=== PATIENT | female | born 1990 | race Caucasian/White ===

== ENCOUNTER 2018-03-27 07:46 | Observation (INO) | payer OTHER ==
[~2018-03-27] VITALS: Ht 160 cm; Wt 80.7 kg
[2018-03-27 08:09] VITALS: BP 109/67
[2018-03-27] MEDS ORDERED: PREN1TAB80 PO (08:10)
== END 2018-03-27 09:40 | disposition home or self-care (01) ==
LOC: 4S 07:46
PROVIDERS: ADMIT Obstetrics & Gynecology; ATTEND Obstetrics & Gynecology
DX: Z34.03 Encounter for supervision of normal first pregnancy, third trimester (principal); Z3A.29 29 weeks gestation of pregnancy
CPT/HCPCS: 59025; G0378

== ENCOUNTER 2018-03-27 20:04 | Inpatient (IN) | payer OTHER ==
[~2018-03-27] VITALS: Ht 160 cm; Wt 78.5 kg
[~2018-03-27 20:04] MED LIST: PREN1TAB80 PO
[2018-03-27] MEDS ORDERED: RINGERS SOLUTION,LACTATED 1,000 ML IV PRN (21:24)
[2018-03-27] MEDS ORDERED: OXYTOCIN 30 UNITS/LACT RINGERS 500 ML IV ONE (21:24)
[2018-03-27] MEDS ORDERED: FentaNYL CITRATE-PF 100 MCG/2 ML VIAL IVP PRN (21:30)
[2018-03-27] MEDS ORDERED: CITRIC ACID/SODIUM CITRATE 30 ML SOLUTION UDCUP PO PRN (21:30)
[2018-03-27] MEDS ORDERED: METOCLOPRAMIDE HCL 5 MG/ML 2 ML VIAL IVP PRN (21:30)
[2018-03-27 21:32] VITALS: BP 113/67
[2018-03-27 21:58] LABS: BASOPHILS % (AUTO) 0.3 % (0.0-2.0); EOSINOPHILS % (AUTO) 1.2 % (1.0-6.0); HEMATOCRIT 36.3 % (36-46); LYMPHOCYTES # (AUTO) 2.5 K/uL (1.0-4.8); LYMPHOCYTES % (AUTO) 28.6 % (22.0-44.0); MEAN CORPUSCULAR HEMOGLOBIN 31.1 pg (26.0-34.0); MEAN CORPUSCULAR HGB CONC 35.7 G/dL (31.0-37.0); MEAN CORPUSCULAR VOLUME 87 fL (80-100); MONOCYTES % (AUTO) 11.6 % (2.0-9.0); NEUTROPHILS # (AUTO) 5.1 K/uL (1.8-7.7); NEUTROPHILS % (AUTO) 58.3 % (40.0-70.0); PLATELET COUNT (AUTO)-OB 169 K/uL (150-450); RED BLOOD CELL COUNT(AUTO) 4.17 MIL/uL (4.00-5.20); RED CELL DISTRIBUTION WIDTH 13.6 % (11.5-14.5)
[2018-03-27] MEDS ORDERED: DINOPROSTONE 10 MG VAGINAL SUPPOSITORY VG ONE (22:00)
[2018-03-27] MEDS: RINGERS SOLUTION,LACTATED 1,000 ML IV SCH (22:14)
[2018-03-28] MEDS: RINGERS SOLUTION,LACTATED 1,000 ML IV SCH ×2 (04:14→08:17)
[2018-03-28] MEDS ORDERED: OXYGEN THERAPY IH SCH (08:00)
[2018-03-28] MEDS ORDERED: OXYTOCIN 30 UNITS/LACT RINGERS 500 ML IV PRN (09:04)
[2018-03-28] MEDS ORDERED: -PHARMACY NOTE- MISC ONE (10:00)
[2018-03-28] MEDS ORDERED: BENZOCAINE 20%/MENTHOL 56 GM SPRAY CANISTER TP PRN (12:15)
[2018-03-28] MEDS ORDERED: ACETAMINOPHEN/CODEINE 300-30 MG TABLET PO PRN ×2 (12:15)
[2018-03-28] MEDS ORDERED: LANOLIN 7 GM OINTMENT TP PRN (12:15)
[2018-03-28] MEDS ORDERED: GLYCERIN/WITCH HAZEL LEAF 40 PADS JAR TP PRN (12:15)
[2018-03-28] MEDS: IBUPROFEN 800 MG TABLET PO SCH ×2 (14:20→20:38)
[2018-03-28] MEDS: MAGNESIUM HYDROXIDE SUSPENSION 30 ML UDCUP PO SCH (20:36)
[2018-03-29] MEDS: IBUPROFEN 800 MG TABLET PO SCH ×3 (02:00→11:48)
[2018-03-29] MEDS: MAGNESIUM HYDROXIDE SUSPENSION 30 ML UDCUP PO SCH (09:36)
[2018-03-29] MEDS ORDERED: IBUP-2071 PO (10:29)
[2018-03-29] MEDS ORDERED: DSS100 PO (10:30)
== END 2018-03-29 14:20 | disposition home or self-care (01) | DRG 775 ==
LOC: 4S 20:04 → PREOBSVTOIN 04-16 20:23
PROVIDERS: ADMIT Obstetrics & Gynecology; ATTEND Obstetrics & Gynecology
PROC: 10D07Z6 Extraction of Products of Conception, Vacuum, Via Natural or Artificial Opening (ICD-10-PCS; principal; 2018-03-28)
PROC: 0W8NXZZ Division of Female Perineum, External Approach (ICD-10-PCS; 2018-03-28)
PROC: 3E0R3BZ Introduction of Anesthetic Agent into Spinal Canal, Percutaneous Approach (ICD-10-PCS; 2018-03-28)
PROC: 00HU33Z Insertion of Infusion Device into Spinal Canal, Percutaneous Approach (ICD-10-PCS; 2018-03-28)
DX: O80 Encounter for full-term uncomplicated delivery (principal); Z37.0 Single live birth; Z3A.39 39 weeks gestation of pregnancy
CPT/HCPCS: J2590; J7120